=== PATIENT | female | born 1940 | race Caucasian/White ===

== ENCOUNTER 2020-12-27 23:56 | Inpatient (IN) | payer OTHER ==
[~2020-12-27] VITALS: Ht 152.4 cm; Wt 64.9 kg
[~2020-12-27 23:56] MED LIST: PREDNISONE50 MG PO; VIBRAMYCIN100 MG PO; VISTARIL25 MG PO
[2020-12-28 00:33] LABS: HEMOGLOBIN 11.9 gm/dl (12.3-15.3); RED BLOOD COUNT 4.17 M/UL (4.00-5.10); WHITE BLOOD COUNT 21.2 K/UL (4.5-11.0)
[2020-12-28] MEDS ORDERED: NORVASC10 MG PO (08:52)
[2020-12-28] MEDS ORDERED: REMERON15 MG PO (08:53)
[2020-12-28] MEDS ORDERED: DEPAKOTE ER250 MG PO (08:53)
[2020-12-28] MEDS ORDERED: ZESTORETIC 20-1 EACH PO (08:53)
[2020-12-28] MEDS ORDERED: SEROQUEL50 MG PO (08:54)
[2020-12-28] MEDS ORDERED: RISPERDAL1 MG PO (08:54)
[2020-12-28] MEDS ORDERED: MELATONIN5 MG PO (09:51)
[2020-12-30 10:17] LABS: RED BLOOD COUNT 3.82 M/UL (4.00-5.10)
[2020-12-30 10:31] LABS: WHITE BLOOD COUNT 10.2 K/UL (4.5-11.0)
== END 2020-12-31 15:52 | disposition home health service (06) | DRG 871 ==
LOC: ER1 23:56 → M/S 12-28 03:43 → CDU 12-28 03:43 → M/S 12-28 07:35
PROVIDERS: Family Medicine; Internal Medicine; ADMIT Internal Medicine
DX: A41.9 Sepsis, unspecified organism (principal); J69.0 Pneumonitis due to inhalation of food and vomit; N17.9 Acute kidney failure, unspecified; F03.90 Unspecified dementia, unspecified severity, without behavioral disturbance, psychotic disturbance, mood disturbance, and anxiety; Z66 Do not resuscitate; Z20.822 Contact with and (suspected) exposure to COVID-19; E86.0 Dehydration; D64.9 Anemia, unspecified; I10 Essential (primary) hypertension; R29.6 Repeated falls; W18.30XA Fall on same level, unspecified, initial encounter; Y92.091 Bathroom in other non-institutional residence as the place of occurrence of the external cause; Z90.710 Acquired absence of both cervix and uterus; Z87.891 Personal history of nicotine dependence; Z88.0 Allergy status to penicillin
CPT/HCPCS: 0240U; 36415; 70450; 71045; 71250; 80048; 80053; 81001; 82272; 82550; 82553; 82962; 83605; 83690; 83735; 83874; 84484; 85025; 85027; 85610; 86850; 86900; 86901; 87040; 87086; 93005; 96374; 99285; J0692; J0696; J1644; J2405; J7030